=== PATIENT | female | born 1975 | race Caucasian/White ===

== ENCOUNTER → 2016-07-21 | Outpatient (CLI) | payer OTHER, MEDICAID ==
--- NOTE | 2016-07-21 10:09 | DX ---
Chest, PA and lateral HISTORY: Cough since June 28, 2016, HIV+ COMPARISON: November 23, 2015 FINDINGS: There are vague new patchy densities in the left upper and mid lung. On the lateral view th ere is possibly a new irregular mass in the 6 upper chest anterior to the T3 vertebral body. There is no pleural fluid. There is no obvious adenopathy. Heart size and pulmonary vascularity remain normal . Impression: Possible new upper lobe mass. Patchy left lung infiltrate. Recommendation: Either follow-up chest x-ray after a period of antibiotic therapy versus proceeding t o noncontrast chest CT for further evaluation. Results called to Dr. Salas.
== END ==
LOC: BMCIMAGING 09:30
PROVIDERS: ATTEND Family Medicine
DX: R05 Cough (principal)

== ENCOUNTER → 2016-07-29 | Outpatient (CLI) | payer OTHER, MEDICAID ==
--- NOTE | 2016-07-29 15:13 | CT ---
CT Scan of the Chest, Without Contrast Clinical Indications: Follow up abnormalities noted on PA and lateral chest radiography July 21 017 in an HIV+ 41-year-old female with a history of cough x1 month. Technique: Noncontrast helical CT imaging was performed from the superior thoracic inlet to the diaph ragm. Axial images are obtained at 4 mm intervals and reformatted at 1.5 mm thickness. The examinatio n is reviewed on the workstation at multiple window/level settings. Sagittal and coronal reformations are performed. Dose reduction techniques were utilized for this examination. Findings: Scattered areas of alveolar opacification are seen involving the upper and lower lobes kalyan aterally, more extensive on the left side. The opacities tend to be peripheral and somewhat pleural b ased. Additionally, there is bronchial wall thickening and there are scattered parenchymal nodules, m ost pronounced in the lingular segment of the left upper lobe. The constellation of findings is highl y suggestive of an infectious process, consider atypical organism and TB should be a differential con sideration. No pleural effusions are identified. Shotty mediastinal adenopathy is identified. There i s also shotty adenopathy in the upper abdomen which is more pronounced than on a CT study from November. IMPRESSION: 1. Scattered bilateral alveolar opacities, parenchymal nodularity, and bronchial wall thickening are most compatible with infectious process. Considering the HIV diagnosis, atypical organisms including TB are differential considerations. 2. Shoddy adenopathy in the chest as well as in the visualized upper abdomen. A preliminary report was called to the patient's healthcare provider, Dr. Salas.
== END ==
LOC: FIMAGING 12:38
PROVIDERS: ATTEND Family Medicine
DX: R91.8 Other nonspecific abnormal finding of lung field (principal)

== ENCOUNTER → 2016-08-21 | Outpatient (CLI) | payer OTHER, MEDICAID | LOC: FIMAGING 12:36 | PROVIDERS: ATTEND Physician Assistant | DX: R91.8 Other nonspecific abnormal finding of lung field (principal); B20 Human immunodeficiency virus [HIV] disease ==

== ENCOUNTER → 2017-01-25 | Outpatient (CLI) | payer OTHER, MEDICAID | LOC: FIMAGING 10:38 → EDSTATUS 10:39 | PROVIDERS: ATTEND Physician Assistant | DX: R05 Cough (principal) ==

== ENCOUNTER → 2017-02-17 | Outpatient (CLI) | payer OTHER, MEDICAID | LOC: FIMAGING 13:52 | PROVIDERS: ATTEND Physician Assistant | DX: J18.9 Pneumonia, unspecified organism (principal) ==

== ENCOUNTER → 2017-05-04 | Outpatient (CLI) | payer OTHER, MEDICAID | LOC: FIMAGING 08:43 | PROVIDERS: ATTEND Internal Medicine | DX: Z12.31 Encounter for screening mammogram for malignant neoplasm of breast (principal) | CPT/HCPCS: G0202 ==

== ENCOUNTER → 2017-05-10 | Outpatient (CLI) | payer OTHER, MEDICAID | LOC: FIMAGING 08:41 | PROVIDERS: ATTEND Physician Assistant | DX: J98.4 Other disorders of lung (principal) ==

== ENCOUNTER 2017-10-11 09:03 | Day surgery (SDC) | payer OTHER, MEDICAID ==
[2017-10-11] MEDS ORDERED: LR 1,000 ML IV ONE (09:12)
[2017-10-11] MEDS ORDERED: LIDOCAINE 1% 2 ML INJ ID PRN (09:12)
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
--- NOTE | 2017-10-11 09:54 | PDHPUP ---
History & Physical Update H&P update statement: This history and physical update is based on an assessment of the patient which was completed after admission or registration (within 24 hours), but prior to the surgery/procedure. H&P update: H&P reviewed & patient examined, no change in patient's condition since H&P completed
[2017-10-11] MEDS ORDERED: BUPIVACAINE 0.5% 30 ML SDV ONE (09:57)
[2017-10-11] MEDS ORDERED: ACETAMINOPHEN 500 MG TAB PO PRN (09:59)
[2017-10-11] MEDS ORDERED: ONDANSETRON 4 MG/2 ML VIAL IVP PRN (09:59)
[2017-10-11] MEDS ORDERED: fentaNYL 100 MCG/2 ML INJ IVP PRN (09:59)
[2017-10-11] MEDS ORDERED: oxyCODONE IR 5 MG TAB PO PRN (09:59)
[2017-10-11] MEDS ORDERED: LR 500 ML IV PRN (09:59)
[2017-10-11] MEDS ORDERED: NALOXONE HCL 0.4 MG/ML INJ IVP PRN (09:59)
[2017-10-11] MEDS ORDERED: BUPIVACAINE 0.25% 30 ML SDV ONE (09:59)
[2017-10-11] MEDS ORDERED: fentaNYL 100 MCG/2 ML INJ ONE (10:02)
[2017-10-11] MEDS ORDERED: PROPOFOL/EMULSION 500 MG/50 ML BOTTLE IV ONE (10:03)
[2017-10-11] MEDS ORDERED: BACITRACIN ZINC 14.2 GM OINTTUBE TP ONE (10:29)
[2017-10-11] MEDS ORDERED: DEXAMETHASONE 4 MG/ML VIAL ONE (10:42)
[2017-10-11] MEDS ORDERED: ONDANSETRON 4 MG/2 ML VIAL ONE (10:42)
--- NOTE | 2017-10-11 10:47 | POSTOPPROG ---
Post Op Note Date of Operation: 10/11/17 Surgeon: David Fields Anesthesiologist: Dr. Reyes Anesthesia: LMA Pre-op Diagnosis: Perianal mass Post-op Diagnosis: same Procedure: Excision Inf/Abcess present in the surg proc area at time of surgery?: No EBL: Minimal
--- NOTE | 2017-10-11 11:21 | GOP ---
[f rep st] OPERATIVE REPORT DATE OF OPERATION: 10/11/2017 SURGEON: Mitch Fields MD ANESTHESIA: Laryngeal mask anesthesia. ANESTHESIOLOGIST: Lucius Reyes MD PREOPERATIVE DIAGNOSIS: Perianal mass. POSTOPERATIVE DIAGNOSIS: Perianal mass. PROCEDURE PERFORMED: 1. Rectal exam under anesthesia. 2. Excision of perianal mass. FINDINGS: The patient had what appeared to be a moderate-sized skin tag in the posterior aspect of t he anus. No other lesions were identified. ESTIMATED BLOOD LOSS: 20 cc. INDICATIONS: A 42-year-old female with a history of perianal mass. Risks and benefits of the proced ure were discussed with the patient and her family, their questions were answered, and they wished to proceed. DESCRIPTION OF PROCEDURE: Patient was placed in the supine position initially. After the induction of adequate laryngeal mask anesthesia, the patient was moved to the modified lithotomy position. She was then prepped and draped in the standard surgical fashion. Digital rectal exam was performed, an d no masses were identified. The anus was serially dilated, and anoscope was placed. Once again, no masses were identified. The perianal mass was noted in the posterior aspect of the perianal area. This was consistent with a skin tag. 0.25% Marcaine was injected throughout the area for local anest hesia. The mass was then sharply excised. It was sent for permanent section. The area was cauteriz ed for hemostasis. The subcutaneous tissue was approximated in layers with 3-0 chromic in an interru pted fashion. The skin was approximated with 3-0 chromic in an interrupted fashion. The wound was d ressed with Polysporin ointment. She was then returned to the supine position and extubated. She wa s taken to the PACU in stable condition. COMPLICATIONS: None. DRAINS: None. /[id number]/MODL
[2017-10-11 11:55] VITALS: BP 107/64
--- NOTE | 2017-10-11 22:57 | POSTANESTH ---
Post Anesthetic Evaluation Cardiovascular Status: Normal, Stable, Similar to Pre-Op Cond Respiratory Status: Normal, Stable, Similar to Pre-op Cond. Level of Consciousness/Mental Status: Can Participate in Eval, Alert and Oriented Pain Control: Adequate, Prn Tx Ordered Nausea/Vomiting Control: Adequate, Prn Tx Ordered Complications Possibly Related to Anesthesia: None Noted
== END 2017-10-11 11:45 | disposition home or self-care (01) ==
LOC: FSGY 09:03
PROVIDERS: ATTEND Surgery
PROC: 0DBQ7ZX Excision of Anus, Via Natural or Artificial Opening, Diagnostic (ICD-10-PCS; principal; 2017-10-11 10:30)
DX: K62.82 Dysplasia of anus (principal); J43.9 Emphysema, unspecified; F17.210 Nicotine dependence, cigarettes, uncomplicated; Z21 Asymptomatic human immunodeficiency virus [HIV] infection status; Z79.899 Other long term (current) drug therapy
CPT/HCPCS: J1100; J2405; J2704; J3010

== ENCOUNTER 2018-11-01 08:46 | Emergency (ER) | payer OTHER, MEDICAID ==
--- NOTE | 2018-11-01 09:10 | EDPHY ---
General - History Smoking Status: Light smoker Time Seen by Provider: 11/01/18 08:55 Narrative: CLINICAL IMPRESSION: Right foot strain ASSESSMENT/PLAN: 43-year-old female presents to the emergency department with acute right foot pain after kicking a door last night. On exam, patient has no obvious swelling , deformity, open wound, or neurovascular compromise. X-rays negative for acute fracture dislocation and Lisfranc injury. She was placed in a postop walking shoe for comfort. Rice treatment reviewed. Orthopedic referral given. Warning signs return to ED sooner discussed in discharge. DIFFERENTIAL DX: Differential includes but not limited to acute fracture, strain/sprain, joint dislocation, soft tissue contusion ED PROCEDURES: Procedure: Splint placement. A postop shoe splint was applied to right foot by ob scrub tech, supervised by myself. After application of the splint I returned and re-examined the patient. The splint was adequately immobilizing the joint and distal to the splint the patient's circulation and sensation was intact. ED COURSE: 9:10 a.m.: X-rays reviewed by myself. No evidence of acute fracture or dislocation. CHIEF COMPLAINT: Right foot pain HPI: 43-year-old female with past medical history of panic, anxiety and chronic pain , presents to the emergency department with acute right foot pain. Patient reports she had her arms full of groceries last night, kicked a door open to get into the house, and experienced pain to the top of the foot. She was barefoot at the time. No open wounds. She states it felt fine last night but this morning she had increased pain with attempted walking. She states she has broken all the toes in this foot before but has never had any kind of surgery. No reported numbness or loss of sensation. She took ibuprofen prior to arrival. PAST MEDICAL HISTORY: Anxiety and panic, chronic pain Pertinent Past Surgical History: No prior Ortho surgery reported REVIEW OF SYSTEMS: All other systems negative Constitutional: No fever, no chills Musculoskeletal: No deformity, + joint pain Skin: No rashes, color change or open wounds. Neurological: No sensory loss or weakness. PHYSICAL EXAM: General Appearance: Alert, oriented, appropriate for age, cooperative, NAD, talking on the phone, does not appear in pain, VSS, no hypoxia. Neurological: Alert and oriented x 3, normal sensation and strength of extremities Skin: Warm, dry, no rashes, no nodules on palpation. Musculoskeletal: No obvious swelling or deformity of the right foot. Reproducible pain to deep palpation on the dorsum of the foot over the 1st through 3rd metatarsals. No proximal 5th metatarsal pain. No medial or lateral malleolus swelling or pain. MEDICAL DECISION MAKING: Patient was seen independently. Secondary supervising physician at time of evaluation was Dr. Coreas . Diagnosis: Right foot strain . New, requires workup Summary: See assessment and plan for summary of ED visit Independent visualization of images, tracing, or specimens yes. Patient Progress: Stable for discharge. (Javon Montanez) Medical Decision Making: I did not see this patient while she was in the emergency department. However her care was discussed with the PA while the patient was in the department. I agree with treatment plan and management (Moy Coreas) - Diagnostics Imaging Results: Imaging Impressions Foot X-Ray 11/01/18 08:56 Impression: There is no acute osseous abnormality identified. - Objective Vital Signs: Initial Vital Signs Temperature (C) 36.7 C 11/01/18 08:51 Heart Rate 91 11/01/18 08:51 Respiratory Rate 18 11/01/18 08:51 Blood Pressure 98/68 L 11/01/18 08:51 O2 Sat (%) 94 04/30/19 08:51 O2 Delivery Mode Room Air Allergies/Adverse Reactions: tramadol [Tramadol] Allergy (Severe, Verified 11/01/18 08:51) lips & neck swelling Penicillins Allergy (Intermediate, Verified 11/01/18 08:51) Hives/rash Home Medications: Medication Instructions Recorded Acyclovir 10/07/17 Buspar (*) 10/07/17 Ibuprofen 10/07/17 Proair Hfa 10/07/17 Spiriva Inhaler (RX) 10/07/17 Triumeq Tablet 10/07/17 Xanax 10/07/17 traZODone 10/07/17 Departure - Departure Disposition: Home, Routine, Self-Care Clinical Impression: Strain of foot, right Qualifiers: Encounter type: initial encounter Qualified Code(s): S96.911A - Strain of unspecified muscle and tendon at ankle and foot level, right foot, initial encounter Condition: Good Instructions: Metatarsalgia (DC) Additional Instructions: DISCHARGE INSTRUCTIONS FROM YOUR DOCTOR Thank you for visiting our emergency department today. You were treated by a physician claims assistant today and your case was reviewed with our ED Attending physician. Please keep in mind that discharge from the emergency department does not mean that there is nothing wrong - it simply means that we have not identified an emergency condition that requires further evaluation or treatment in the hospital. You should always plan to follow up with primary care for re- evaluation of your condition in the next 2-3 days. If you have been referred to a specialist, please call as soon as possible (today or tomorrow) to schedule your follow up appointment at the appropriate time. X-RAYS OF YOUR FOOT SHOW NO EVIDENCE OF FRACTURE OR DISLOCATION. REST AND ELEVATE THE AFFECTED EXTREMITY MUCH POSSIBLE. ICE THE AFFECTED AREAS 20 MIN ON, 20 MIN OFF FOR THE NEXT SEVERAL DAYS. AN ORTHOPEDIC REFERRAL WAS GIVEN TO USE IF NEEDED. PLEASE REST THE FOOT. USE HOME PAIN MEDICATIONS IF NEEDED. RETURN TO ED FOR SEVERE PAIN, LOSS OF SENSATION TO FOOT OR TOES, SEVERE SWELLING , OR ANY OTHER CONCERN. People present with illnesses and injuries in different ways, and it is always possible that we have missed something. You may always return for re-evaluation if symptoms worsen or if they are not improving or if you develop new/different symptoms. Again, thank you for choosing our emergency department. We hope that you feel better. Referrals: Christine Long PA [Primary Care Provider] - As per Instructions Chirag Chaudhary MD [Medical Doctor] - 5-7 days, if not improved
[2018-11-01 09:54] VITALS: BP 105/78
== END 2018-11-01 10:00 | disposition home or self-care (01) ==
DX: S96.911A Strain of unspecified muscle and tendon at ankle and foot level, right foot, initial encounter (principal); W22.8XXA Striking against or struck by other objects, initial encounter; Y92.009 Unspecified place in unspecified non-institutional (private) residence as the place of occurrence of the external cause
CPT/HCPCS: 73630; 99283; L4386

== ENCOUNTER 2018-12-18 07:07 | Emergency (ER) | payer OTHER, MEDICAID | END 2018-12-18 10:29 | disposition home or self-care (01) ==

== ENCOUNTER → 2018-12-20 | Outpatient (CLI) | payer OTHER, MEDICAID | LOC: FIMAGING 09:22 ==